=== PATIENT | female | born 1995 | race Caucasian/White ===

== ENCOUNTER 2017-09-12 10:49 | Emergency (ER) | payer OTHER ==
--- NOTE | 2017-09-12 10:55 | ER Report ---
History and Physical Time Seen By MD: 10:54 HPI/GISELL CHIEF COMPLAINT: Shortness of breath HISTORY OF PRESENT ILLNESS: This is a 21-year-old female who presents to the emergency department for chest pain and shortness of breath. Patient states that since last she's had nausea and vomiting no diarrhea. Patient states that she did go to urgent care on Sunday they tested her for influenza and she thinks for strep throat she was positive for one of them she's not which one she is positive for however does not sound like she is taking antibiotics at this time. Sunday she began to develop chest pain and shortness of breath. Patient states since then she's had decreased urinary output, overall malaise, aches and chills and decreased intake. Patient states her last couple of days she's had increasing shortness of breath and chest pain. Patient also states she has a mild headache. No rashes. REVIEW OF SYSTEMS: Constitutional: As above. Eyes: No discharge. ENT: No sore throat. Cardiovascular: As above. Respiratory: As above. Gastrointestinal: As above. Genitourinary: Blood. Musculoskeletal: No back pain. Skin: No rashes. Neurological: As above. Allergies: Coded Allergies: No Known Drug Allergies (Unverified , 09/12/17) Home Meds Active Scripts Ondansetron (ZOFRAN ODT) 4 Mg Tab.rapdis, 4 MG PO Q6H Y for NAUSEA/VOMITING, # 20 TAB.SYLVIA 0 Refills Prov:ABRAHAN NAIR SENIOR RESTAURANT MANAGER- 09/12/17 Reported Medications [magic mouthwash] No Conflict Check 09/12/17 [ control oral ] No Conflict Check 09/12/17 Past Medical/Surgical History The patient has no significant past medical or surgical history. Reviewed Nurses Notes: Yes Constitutional Vital Sign - Last 24 Hours 09/12/17 09/12/17 09/12/17 09/12/17 10:49 10:54 11:00 11:00 Temp 98.2 Pulse ??? 100 Resp 18 B/P (MAP) 109/71 (84) 115/80 (92) 115/80 Pulse Ox 95 O2 Delivery Room Air 09/12/17 09/12/17 09/12/17 09/12/17 11:04 11:19 11:30 11:34 Pulse 90 92 92 Resp 55 29 15 B/P (MAP) 115/75 (88) Pulse Ox 95 94 96 09/12/17 09/12/17 09/12/17 09/12/17 11:49 12:00 12:04 12:09 Pulse 89 ? Resp 14 B/P (MAP) ???/??? (1665) Pulse Ox 96 09/12/17 09/12/17 09/12/17 09/12/17 12:24 12:29 12:39 12:54 Pulse ??? 84 78 Resp 22 37 B/P (MAP) 123/74 (90) Pulse Ox 95 96 09/12/17 09/12/17 09/12/17 13:00 13:09 13:18 Temp 98.2 Pulse 77 Resp 34 B/P (MAP) 121/80 (94) Pulse Ox 97 Intake and Output 09/12/17 09/12/17 09/13/17 15:00 23:00 07:00 Intake Total 1850 ml Balance 1850 ml Physical Exam General Appearance: The patient is alert, has no immediate need for airway protection and no signs of toxicity. Eyes: Pupils equal and round no pallor or injection. ENT, Mouth: Mucous membranes are moist. Respiratory: There are no retractions, lungs are clear to auscultation. Cardiovascular: Regular rate and rhythm, no murmurs, clicks or rubs. Gastrointestinal: Abdomen is soft and non tender, no masses, bowel sounds normal. Neurological: Alert and oriented 4. Moving all extremities. Following all commands. No focal neuro deficits. Skin: Warm and dry, no rashes. Musculoskeletal: Neck is supple non tender. Extremities are nontender, nonswollen and have full range of motion. DIFFERENTIAL DIAGNOSIS: After history and physical exam differential diagnosis was considered for shortness of breath including but not limited to pulmonary infectious process, COPD, asthma, pulmonary embolus and congestive heart failure. Medical Decision Making Data Points Result Diagram: 09/12/17 1110 09/12/17 1110 Laboratory Hematology Test 09/12/17 11:10 09/12/17 12:15 Red Blood Count 5.32 M/uL (4.17-5.56) Mean Corpuscular Volume 86.8 fL (80.0-96.0) Mean Corpuscular Hemoglobin 30.3 pg (26.0-33.0) Mean Corpuscular Hemoglobin Concent 34.9 g/dL (32.0-36.0) Red Cell Distribution Width 13.1 % (11.5-14.5) Mean Platelet Volume 8.1 fL (7.2-11.1) Neutrophils (%) (Auto) 27.5 % (39.4-72.5) Lymphocytes (%) (Auto) 68.5 % (17.6-49.6) Monocytes (%) (Auto) 3.1 % (4.1-12.4) Eosinophils (%) (Auto) 0.1 % (0.4-6.7) Basophils (%) (Auto) 0.8 % (0.3-1.4) Nucleated RBC Relative Count (auto) 0.2 /100WBC Neutrophils # (Auto) 3.8 K/uL (2.0-7.4) Lymphocytes # (Auto) 9.6 K/uL (1.3-3.6) Monocytes # (Auto) 0.4 K/uL (0.3-1.0) Eosinophils # (Auto) 0.0 K/uL (0.0-0.5) Basophils # (Auto) 0.1 K/uL (0.0-0.1) Nucleated RBC Absolute Count (auto) 0.03 K/uL Peripheral Blood Smear Yes Y/N D-Dimer Quantitative (PE/DVT) 3.57 ug/ml (0-0.50) Sodium Level 136 mmol/L (137-145) Potassium Level 4.1 mmol/L (3.5-5.0) Chloride Level 99 mmol/L (98-107) Carbon Dioxide Level 27 mmol/L (22-31) Blood Urea Nitrogen 5 mg/dl (7-18) Creatinine 0.80 mg/dl (0.52-1.04) Glomerular Filtration Rate Calc > 60.0 Random Glucose 107 mg/dl (75-110) Calcium Level 9.0 mg/dl (8.4-10.2) Total Bilirubin 4.8 mg/dl (0.2-1.3) Aspartate Amino Transf (AST/SGOT) 180 U/L (0-35) Alanine Aminotransferase (ALT/SGPT) 208 U/L (0-56) Alkaline Phosphatase 191 U/L (0-126) Troponin I < 0.012 ng/ml Total Protein 7.5 g/dl (6.3-8.2) Albumin 3.7 g/dl (3.5-5.0) Lipase 59 U/L (23-300) Human Chorionic Gonadotropin, Qual Negative (NEGATIVE) Monoscreen Positive (NEGATIVE) Urine Color Alyce Urine Clarity Clear Urine pH 6.0 pH (4.8-9.5) Urine Specific [place] 1.029 Urine Protein Negative mg/dL (NEGATIVE) Urine Glucose (UA) Negative mg/dL (NEGATIVE) Urine Ketones Negative mg/dL (NEGATIVE) Urine Blood Moderate (NEGATIVE) Urine Nitrite Negative (NEGATIVE) Urine Bilirubin Negative (NEGATIVE) Urine Urobilinogen Negative mg/dL (0.2-1.9) Urine Leukocyte Esterase Negative (NEGATIVE) Urine RBC 1 /HPF (0-2/HPF) Urine WBC 1 /HPF (0-5/HPF) Urine Squamous Epithelial Cells Moderate /LPF (</=FEW) Urine Bacteria Negative /HPF (NONE-FEW) Urine Mucus None /HPF (NONE-FEW) Chemistry Test 09/12/17 11:10 09/12/17 12:15 White Blood Count 14.0 k/uL (4.5-11.0) Red Blood Count 5.32 M/uL (4.17-5.56) Hemoglobin 16.1 g/dL (12.0-16.0) Hematocrit 46.2 % (34.0-47.0) Mean Corpuscular Volume 86.8 fL (80.0-96.0) Mean Corpuscular Hemoglobin 30.3 pg (26.0-33.0) Mean Corpuscular Hemoglobin Concent 34.9 g/dL (32.0-36.0) Red Cell Distribution Width 13.1 % (11.5-14.5) Platelet Count 173 K/uL (150-450) Mean Platelet Volume 8.1 fL (7.2-11.1) Neutrophils (%) (Auto) 27.5 % (39.4-72.5) Lymphocytes (%) (Auto) 68.5 % (17.6-49.6) Monocytes (%) (Auto) 3.1 % (4.1-12.4) Eosinophils (%) (Auto) 0.1 % (0.4-6.7) Basophils (%) (Auto) 0.8 % (0.3-1.4) Nucleated RBC Relative Count (auto) 0.2 /100WBC Neutrophils # (Auto) 3.8 K/uL (2.0-7.4) Lymphocytes # (Auto) 9.6 K/uL (1.3-3.6) Monocytes # (Auto) 0.4 K/uL (0.3-1.0) Eosinophils # (Auto) 0.0 K/uL (0.0-0.5) Basophils # (Auto) 0.1 K/uL (0.0-0.1) Nucleated RBC Absolute Count (auto) 0.03 K/uL Peripheral Blood Smear Yes Y/N D-Dimer Quantitative (PE/DVT) 3.57 ug/ml (0-0.50) Glomerular Filtration Rate Calc > 60.0 Calcium Level 9.0 mg/dl (8.4-10.2) Total Bilirubin 4.8 mg/dl (0.2-1.3) Aspartate Amino Transf (AST/SGOT) 180 U/L (0-35) Alanine Aminotransferase (ALT/SGPT) 208 U/L (0-56) Alkaline Phosphatase 191 U/L (0-126) Troponin I < 0.012 ng/ml Total Protein 7.5 g/dl (6.3-8.2) Albumin 3.7 g/dl (3.5-5.0) Lipase 59 U/L (23-300) Human Chorionic Gonadotropin, Qual Negative (NEGATIVE) Monoscreen Positive (NEGATIVE) Urine Color Alyce Urine Clarity Clear Urine pH 6.0 pH (4.8-9.5) Urine Specific [place] 1.029 Urine Protein Negative mg/dL (NEGATIVE) Urine Glucose (UA) Negative mg/dL (NEGATIVE) Urine Ketones Negative mg/dL (NEGATIVE) Urine Blood Moderate (NEGATIVE) Urine Nitrite Negative (NEGATIVE) Urine Bilirubin Negative (NEGATIVE) Urine Urobilinogen Negative mg/dL (0.2-1.9) Urine Leukocyte Esterase Negative (NEGATIVE) Urine RBC 1 /HPF (0-2/HPF) Urine WBC 1 /HPF (0-5/HPF) Urine Squamous Epithelial Cells Moderate /LPF (</=FEW) Urine Bacteria Negative /HPF (NONE-FEW) Urine Mucus None /HPF (NONE-FEW) Coagulation Test 09/12/17 11:10 D-Dimer Quantitative (PE/DVT) 3.57 ug/ml Urinalysis Test 09/12/17 12:15 Urine Color Alyce Urine Clarity Clear Urine pH 6.0 pH (4.8-9.5) Urine Specific [place] 1.029 Urine Protein Negative mg/dL (NEGATIVE) Urine Glucose (UA) Negative mg/dL (NEGATIVE) Urine Ketones Negative mg/dL (NEGATIVE) Urine Blood Moderate (NEGATIVE) Urine Nitrite Negative (NEGATIVE) Urine Bilirubin Negative (NEGATIVE) Urine Urobilinogen Negative mg/dL (0.2-1.9) Urine Leukocyte Esterase Negative (NEGATIVE) Urine RBC 1 /HPF (0-2/HPF) Urine WBC 1 /HPF (0-5/HPF) Urine Squamous Epithelial Cells Moderate /LPF (</=FEW) Urine Bacteria Negative /HPF (NONE-FEW) Urine Mucus None /HPF (NONE-FEW) EKG/Imaging EKG Interpretation 12 lead EKG: Time of EKG 1104. Rhythm: Normal sinus rhythm, ventricular rate 90 ppm. [place]: normal QRS: normal ST segments: No ST depression or elevation identified. Imaging Location: [facility] - [place] Patient: Frida Marte : 1995 Visit/Account:[id number] [facility] CT[facility] CHEST WW/O CNTR (PULM ANG) COMPARISONS: None. ADDITIONAL PERTINENT HISTORY: Shortness of breath TECHNIQUE: Multiple axial images are obtained from the lung apices through the upper abdomen during the IV administration of contrast material. 2-D and 3-D reformatted images were obtained off the axial source data. One of the following dose optimization techniques was utilized in the performance of this exam: Automated exposure control; adjustment of the mA and/or kV according to the patient's size; or use of an iterative reconstruction technique. Specific details can be referenced in the facility's radiology CT exam operational policy. CONTRAST: 75mL of Isovue-370 FINDINGS: Lung parenchyma: Negative. Pleural spaces: Negative. Heart, mediastinum and margi: Negative. Cardiopulmonary vasculature: The pulmonary arterial structures are well opacified with contrast material and demonstrate no evidence of underlying pulmonary emboli. Central airways: Negative Thyroid, supra- clavicular, axillary regions: Negative. Surrounding soft tissues: Negative. Upper abdominal structures: Negative. Osseous structures: Negative. IMPRESSION: 1. Normal CTA of the chest 2. Specifically no evidence of underlying pulmonary emboli. Report Dictated By: Raj Miranda MD at 09/12/2017 12:18 PM Report E-Signed By: Raj Miranda MD at 09/12/2017 12:21 PM WSN:[id number] ED Course/Re-evaluation Clinical Indication for ER IV: Hydration, IV Access ED Course The patient was admitted to a room. A history and physical were obtained. Differential diagnoses were considered. An IV was started. Patient was given 2 L normal saline. 4 mg IV Zofran 2. A CBC, CMP, troponin, DDimer, UA, and mono were obtained. Lab studies showing to be PVCs 14.0, AST 180, ALT 208 alkaline phosphatase 191, d-dimer 3.57 negative UA and positive mono. CTA of the chest was negative for pulmonary embolus. I did review the lab studies as well as the CT with the patient. I did tell the patient that she does have mono and we discussed her symptoms, avoiding contact sports and be sure to avoid Tylenol for the next several weeks. The patient was relieved that there was no pulmonary emboli. She was encouraged to return to the ED for any other concerns or worsening symptoms. The patient was given a prescription for Zofran. Patient had no other questions or concerns at this time discharged home. Decision to Disposition Date: Sep 12, 2017 Decision to Disposition Time: 13:08 Depart Departure Latest Vital Signs Vital Signs Date Time Temp Pulse Resp B/P (MAP) Pulse Ox O2 Delivery O2 Flow Rate FiO2 09/12/17 13:18 98.2 09/12/17 13:09 77 34 97 09/12/17 13:00 121/80 (94) 09/12/17 11:00 Room Air Impression: Primary Impression: Elevated liver enzymes Additional Impression: Mononucleosis Condition: Improved Disposition: HOME OR SELF-CARE New Scripts Ondansetron (ZOFRAN ODT) 4 Mg Tab.rapdis 4 MG PO Q6H Y for NAUSEA/VOMITING, #20 TAB.SYLVIA 0 Refills Prov: ABRAHAN NAIR Addy SENIOR RESTAURANT MANAGER-BC 09/12/17 Patient Instructions: Mononucleosis (ED) Additional Instructions: There is no evidence of a pulmonary emboli today. Your liver enzymes are elevated, so avoid drinking alcohol or taking Tylenol for the next two weeks. You should begin to feel better over the next 1-2 weeks. Be sure to drink plenty of water. Get plenty of rest. Take the Zofran for nausea. I would encourage you to try ibuprofen for your aches and pains. Try a clear liquid diet for the next 12-24 hours, then slowly progress into a regular diet. Return to the ED for any other concerns or worsening symptoms. Problem Qualifiers ABRAHAN NAIR SENIOR RESTAURANT MANAGER-BC Sep 12, 2017 10:55
[2017-09-12] MEDS ORDERED: NS(*) 0.9% 1000 ML BAG 1,000 ML IV ONE ×2 (11:06→12:40)
[2017-09-12] MEDS ORDERED: ONDANSETRON 4 MG/2 ML VIAL IVP ONE ×2 (11:10→12:25)
[2017-09-12] MEDS ORDERED: magic mouthwash (11:14)
[2017-09-12] MEDS ORDERED: BIRTH CONTROL (11:14)
[2017-09-12 11:20] LABS: PLATELET COUNT, AUTOMATED 173 K/uL (150-450)
[2017-09-12] MEDS ORDERED: IOPAMIDOL 76% 75 ML INFUS BTL 75 ML ONE (11:52)
[2017-09-12] MEDS ORDERED: NS 0.9% 25 ML BAG 50 ML ONE (11:52)
--- NOTE | 2017-09-12 12:24 | RADIOLOGY IMAGING REPORT ---
FACILITY: [facility] - [place], [place] PATIENT NAME: Frida Marte : 1995 MR: [id number] V: [id number] EXAM DATE: ORDERING PHYSICIAN: ABRAHAN NAIR TECHNOLOGIST: Location: [facility] Patient: Frida Marte : 1995 Visit/Account:[id number] Date of [place]: 09/12/2017 CTA CHEST WW/O CNTR (PULM ANG) COMPARISONS: None. ADDITIONAL PERTINENT HISTORY: Shortness of breath TECHNIQUE: Multiple axial images are obtained from the lung apices through the upper abdomen during t he IV administration of contrast material. 2-D and 3-D reformatted images were obtained off the axial source data. One of the following dose optimization techniques was utilized in the performance of t his exam: Automated exposure control; adjustment of the mA and/or kV according to the patient's size; or use of an iterative reconstruction technique. Specific details can be referenced in the [facility]'s radiology CT exam operational policy. CONTRAST: 75mL of Isovue-370 FINDINGS: Lung parenchyma: Negative. Pleural spaces: Negative. Heart, mediastinum and margi: Negative. Cardiopulmonary vasculature: The pulmonary arterial structures are well opacified with contrast mater ial and demonstrate no evidence of underlying pulmonary emboli. Central airways: Negative Thyroid, supra- clavicular, axillary regions: Negative. Surrounding soft tissues: Negative. Upper abdominal structures: Negative. Osseous structures: Negative. IMPRESSION: 1. Normal CTA of the chest 2. Specifically no evidence of underlying pulmonary emboli. Report Dictated By: Raj Miranda MD at 09/12/2017 12:18 PM Report E-Signed By: Raj Miranda MD at 09/12/2017 12:21 PM WSN:[id number]
[2017-09-12] MEDS ORDERED: KETOROLAC 30 MG/ML VIAL IVP ONE (12:40)
[2017-09-12] MEDS ORDERED: diphenhydrAMINE 50 MG/ML VIAL IVP ONE (12:40)
[2017-09-12] MEDS ORDERED: ONDA4TAB PO (12:54)
[2017-09-12 13:00] VITALS: BP 121/80
--- NOTE | 2017-09-12 13:21 | EKG ---
[place] [facility] [place] NAME[place] DARRYL LAZCANO : [id number] MR: [id number] V: [id number] EXAM DATE: ORDERING PHYSICIAN: ABRAHAN NAIR TECHNOLOGIST: JOSEE Barrett Reason : CP Blood Pressure : / mmHG Vent. Rate : 090 BPM Atrial Rate : 090 BPM P-R Int : 144 ms QRS Dur : 078 ms QT Int : 378 ms P-R-T Axes : 047 028 028 degrees QTc Int : 462 ms Sinus rhythm Nonspecific T wave findings anterior leads No previous ECGs available Confirmed by NIKOALY HOLLIDAY ([id number] on 09/13/2017 5:39:08 AM Referred By: ELVIN Confirmed By:NIKOLAY HOLLIDAY
== END 2017-09-12 13:21 | disposition home or self-care (01) ==
LOC: ER 10:56
DX: B27.90 Infectious mononucleosis, unspecified without complication (principal); R79.89 Other specified abnormal findings of blood chemistry
CPT/HCPCS: 71275; 81001; 83690; 84484; 84703; 85025; 85379; 86308; 93005; 96361; 96374; 96375; 96376; 99284; J1200; J1885; J2405; J7030; Q9967; 82040; 82247; 82310; 82374; 82435; 82565; 82947; 84075; 84132; 84155; 84295; 84450; 84460; 84520